=== PATIENT | male | born 1970 | race Caucasian/White ===

== ENCOUNTER 2020-08-31 10:36 | Emergency (ER) | payer OTHER, SELFPAY ==
--- NOTE | ~2020-08-31 | XR_ITS ---
EXAMINATION: XR wrist RT min 3V DATE: 08/31/2020 11:20 INDICATION: Right wrist injury and pain. TECHNIQUE: 4 views of right wrist were obtained. COMPARISON: None. FINDINGS: Bone alignment is normal. No fracture. There is mild osteoarthritis of first carpometacarpa l joint. IMPRESSION: 1. Mild osteoarthritis of first carpometacarpal joint. Reviewed, dictated and finalized at location B.
[2020-08-31 10:49] VITALS: BP 152/102; PULSE 87; RESP 20; TEMP 36.7; O2SAT 97
--- NOTE | 2020-08-31 12:28 | ED.GENADULT ---
HPI - General Adult General Chief complaint: Extremity Injury, Upper Stated complaint: hand injury Time Seen by Provider: 08/31/20 11:13 Source: patient and RN notes reviewed Mode of arrival: ambulatory Limitations: no limitations History of Present Illness HPI narrative: Patient is a 49-year-old male who presents to emergency department for evaluation of right wrist pain that occurred after striking his hand last night while at work after he slipped patient notes aching pain to the right wrist at the snuffbox patient denies other injuries or complaints pain radiates up the arm Related Data Allergies Allergy/AdvReac Type Severity Reaction Status Date / Time No Known Allergies Allergy Verified 08/31/20 11:48 Review of Systems Review of Systems: All systems reviewed & are unremarkable except as noted in HPI and below PMFSH Social History Social History (Updated 08/31/20 @ 12:30 by Gurwinder Zhao PA-C) Smoking status: Never smoker Exam Narrative: Exam Narrative: GENERAL: Well-appearing, well-nourished, and in no acute distress. HEAD: Normocephalic, atraumatic. EYES: PERRLA and EOMI. ENT: Nares clear, no rhinorrhea or epistaxis. Mucous membranes moist. EXTREMITIES: Normal range of motion. No edema. Tenderness of the right wrist at the anatomical snuffbox there are no deformities noted SKIN: Warm, dry, no rash. NEURO: No focal deficits. Alert and oriented x3. Cranial nerves II through XII grossly intact. Neurovascularly intact PSYCH: Normal mood and affect. Course Course Emergency Course: Patient with negative radiographs will be referred to orthopedist and primary care for further evaluation patient is aware of his x-ray findings Vital Signs Vital signs: Vital Signs Temperature 98.0 F 08/31/20 10:49 Pulse Rate 87 08/31/20 10:49 Respiratory Rate 08/31/20 10:49 Blood Pressure 152/102 H 08/31/20 10:49 Pulse Oximetry 97 08/31/20 10:49 Temperature 98.0 F 08/31/20 10:49 Pulse Rate 87 08/31/20 10:49 Respiratory Rate 20 08/31/20 10:49 Blood Pressure 152/102 H 08/31/20 10:49 Pulse Oximetry 97 08/31/20 10:49 Medical Decision Making MDM Narrative Medical decision making narrative: Patients injury or pain is consistent with musculoskeletal etiology. No signs of neurological or vascular compromise on exam. Compartments and tisues are soft without signs of compartment syndrome. Pain is felt appropriate for further evaluation on an outpatient basis. Vital Signs Vital Signs: Vital Signs Temperature 98.0 F 08/31/20 10:49 Pulse Rate 87 08/31/20 10:49 Respiratory Rate 20 08/31/20 10:49 Blood Pressure 152/102 H 08/31/20 10:49 Pulse Oximetry 97 08/31/20 10:49 Temperature 98.0 F 08/31/20 10:49 Pulse Rate 87 08/31/20 10:49 Respiratory Rate 20 08/31/20 10:49 Blood Pressure 152/102 H 08/31/20 10:49 Pulse Oximetry 97 08/31/20 10:49 Imaging Data Radiologist's impression: ITS Impressions Wrist X-Ray 08/31/20 11:21 IMPRESSION: 1. Mild osteoarthritis of first carpometacarpal joint. Discharge Plan Discharge Clinical Impression: Sprain and strain of wrist Patient Disposition: Home, Self-Care Condition: Stable Instructions: Antibiotic Form, Arthralgia (ED) Additional Instructions: Follow-up with orthopedist in the next 10 days Return if symptoms worsen or concerns Wear Jamie wrap with rest ice and elevation Follow-up/Referrals: PHYSICIAN,WAITRESS [Primary Care Provider] - Luis M Smith MD [Physician] - Stand Alone Forms: Work/School Release IP
== END 2020-08-31 12:51 | disposition home or self-care (01) ==
PROVIDERS: Emergency Provider Emergency Medicine
DX: S63.501A Unspecified sprain of right wrist, initial encounter (principal); W01.0XXA Fall on same level from slipping, tripping and stumbling without subsequent striking against object, initial encounter
CPT/HCPCS: 73110; 99283

== ENCOUNTER 2021-06-02 20:24 | Emergency (ER) | payer OTHER, SELFPAY ==
--- NOTE | ~2021-06-02 | XR_ITS ---
EXAMINATION: XR wrist RT min 3V DATE: 06/02/2021 20:58 INDICATION: Right wrist pain and swelling. TECHNIQUE: 4 views of right wrist were obtained. COMPARISON: Right wrist radiographs 08/31/2020 FINDINGS: Bone alignment is normal. No fracture. Joint spaces are well maintained. There is radial si ded soft tissue swelling. IMPRESSION: 1. No fracture. Reviewed, dictated and finalized at location E. TRIMMER UPHOLSTERER IMPRESSION: 1. No fracture.
[2021-06-02 20:30] VITALS: BP 155/73; PULSE 88; RESP 20; TEMP 36.3; O2SAT 100
--- NOTE | 2021-06-02 20:53 | ED_ITS ---
HPI - Extremity Injury (Upper) General Chief Complaint: Extremity Injury, Upper Stated Complaint: right wrist pain Time Seen by Provider: 06/02/21 20:43 Source: patient Mode of arrival: ambulatory Limitations: no limitations History of Present Illness HPI narrative: Patient is a 51-year-old male complaining of right wrist pain, 5 out of 10, dull, worse with movement accompanied by swelling x2 days. Patient denies any recent wrist injury but states that he has occasional pain in that wrist from an old injury at work. Patient denies any fever or chills. Denies any cold extremity. Denies any weakness or numbness. 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 Mild pain on palpation of the right wrist, full range of motion but with pain. Neurovascular is intact. Course Vital Signs Vital signs: Vital Signs Temperature 36.3 C L 06/02/21 20:30 Pulse Rate 88 06/02/21 20:30 Respiratory Rate 20 06/02/21 20:30 Blood Pressure 155/73 H 06/02/21 20:30 Pulse Oximetry 100 06/02/21 20:30 Temperature 36.3 C L 06/02/21 20:30 Pulse Rate 88 06/02/21 20:30 Respiratory Rate 20 06/02/21 20:30 Blood Pressure 155/73 H 06/02/21 20:30 Pulse Oximetry 100 06/02/21 20:30 Discharge Plan Discharge Clinical Impression: Sprain and strain of wrist Patient Disposition: Home, Self-Care Condition: Stable Instructions: Wrist Sprain (ED) Additional Instructions: Follow-up with Workmen's Comp. Prescriptions: No Action naproxen sodium [Aleve] 220 mg tablet 220 mg PO BID PRNRF: 0 Follow-up/Referrals: PHYSICIAN,RECEPTION CLERK [Primary Care Provider] - Time of Disposition: 22:33
[2021-06-02 22:41] VITALS: PULSE 85; RESP 16; TEMP 36.9; O2SAT 98
== END 2021-06-02 22:40 | disposition home or self-care (01) ==
PROVIDERS: Emergency Provider Emergency Medicine
DX: S63.501A Unspecified sprain of right wrist, initial encounter (principal); X58.XXXA Exposure to other specified factors, initial encounter
CPT/HCPCS: 73110; 99283

== ENCOUNTER 2021-11-28 00:12 | Day surgery (SDC) | payer OTHER, SELFPAY ==
--- NOTE | 2021-11-24 17:09 | PC.NURSE ---
Report to the Outpatient Waiting Room, entrance under the green pavilion located off [facility], at time 0830 on date 11/28/21. OR Time: 1030___. - You and your visitor will be asked a series of questions to screen for COVID 19 for your protection. - Only one visitor is allowed at this time. - The patient visitor is requested to leave or wait in car when not with patient. - A mask is required within the hospital. Patients may have clear liquids (water, carbonated beverages, clear teas, apple juice) until 3 hours prior to surgery with a maximum of 20 ounces. - No food from midnight until time of surgery - Infants may have breast milk until 4 hours before surgery, infant formula 6 hours prior to surgery. - Children will be allowed to drink immediately following surgery. If applicable, please bring a bottle or sippy cup to assist with drinking. Juice, water, soda, and popsicles are readily available. For infants on formula, please bring formula the day of surgery. Pacifiers are allowed. Take the following medications with a SIP of water the morning of surgery: NONE Medications to discontinue per physician NAPROXEN Date to take last dose____11/25/21 Please no make-up, nail ecuadorean, hairspray, perfume, deodorant, or body powder the day of surgery. No jewelry (including any body piercings) or valuables the day of surgery, leave them at home. Please take a shower or bath the night before, or the morning of, surgery with an antibacterial soap. Wear comfortable, loose fitting clothing. Children are encouraged to wear pajamas. - Jewelry must be removed prior to entering the operating room. Rings and piercings that are not removed may be cut off. - The hospital will not accept responsibility for valuables. - Please leave all valuables, including medications, at home the day of surgery. If you are going home after surgery, a licensed dedicated driver must drive you home. - NO public transportation without another adult. - We recommend that an adult stay with you for 24 hours following discharge. - We also recommend that you do not drive, make important decision, drink alcoholic beverages, or take any drugs that were not prescribed by your health care provider for at least 24 hours after your discharge time. For Pediatric surgeries, we recommend two adults accompany the child home (only one inside the building at this time). Follow any additional instructions given to you from your surgeon. If you or anyone in your household have experienced Covid symptoms in the past week, please notify your surgeon or the nurse liaison at the phone number below for possible testing. Telephone instructions given to _PATIENT_and asked if any additional questions and then verbalized understanding. Patient advised to call surgeon office or pre surgery nurse liaison [phone] if any additional questions.
[2021-11-28] VITALS (7 sets, daily range): BP systolic 96–162; BP diastolic 63–98; PULSE 56–66; RESP 12–18; TEMP 36.2–36.8; O2SAT 99–100
--- NOTE | 2021-11-28 06:54 | SUR.PREOP ---
0619 SPOKE WITH PT, INFORMED OF MESAGE LEFT ON SUNDAY AND TIME CHANGE. PT STATES HE WILL GET READY AND COME IN.
[2021-11-28] MEDS: LACTATED RINGERS 1,000 ML 30 ML IV CONT (08:00)
[2021-11-28] MEDS: ACETAMINOPHEN 500 MG TABLET 1000 MG PO (08:01)
[2021-11-28] MEDS: KETOROLAC 15 MG/ML VIAL (*BKC) IV PUSH (08:01)
--- NOTE | 2021-11-28 08:16 | P.PNAN_ITS ---
Anes - Initial Pre Proc Eval Procedure: Operation Date: 11/28/21 07:30 Proposed Procedures p Right First Dorsal Compartment Release - Luis M Smith MD Date/Time: 11/28/21 08:16 Surgeon: Luis M Smith MD Pre Op Diagnosis: right dequervain's first dorsal compartment Patient Data Age: 50 Gender: M Height: Weight: 81.3 kg Last Vital Signs Temp 36.8 C 11/28/21 07:40 Pulse 66 11/28/21 07:40 Resp 18 11/28/21 07:40 BP 147/88 H 11/28/21 07:40 Pulse Ox 99 11/28/21 07:40 O2 Del Method Room Air 11/28/21 07:40 Allergies Allergy/AdvReac Type Severity Reaction Status Date / Time No Known Allergies Allergy Verified 11/28/21 07:46 Home Medications Medication Instructions Recorded Confirmed Type naproxen sodium 220 mg tablet 220 mg PO BID PRN Pain 09/07/20 11/28/21 History (Aleve) Patient hx anesthesia problems: none Family hx anesthesia problems: none Results Review: All pre-operative results and documents have been reviewed as part of the pre- operative evaluation. 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 Informed Consent: The patient's anesthetic plan and its attendant risks and benefits were discussed with the patient/family/POA. Questions were solicited and answers provided to the satisfaction of the patient/family/POA.
--- NOTE | 2021-11-28 08:31 | WPDHPUPDATE1 ---
History and Physical Update Update Date/Time: 11/28/21 08:31 History and Physical has been reviewed, including an updated exam of the patient. There are NO changes in the patient's condition. Risks, benefits, and alternatives have been discussed and questions answered. Patient agrees to proceed with procedure.
[2021-11-28] MEDS: ceFAZolin 2 GM/D5W 50 ML 2 GM/50 ML BAG IVPB (08:43)
[2021-11-28] MEDS: BUPIVACAINE/EPINEPHRINE 0.25% 50 ML VIAL INFILTRATE (09:10)
--- NOTE | 2021-11-28 09:29 | P.OP_ITS ---
Procedure Note - Detailed Date of Procedure 11/28/21 Pre-op Diagnosis right dequervain's first dorsal compartment Post-op Diagnosis Same Procedure Performed Right first dorsal compartment release Surgeon Luis M Smith MD Application Developer Manager Verito Scott Anesthesia General Description of Procedure The patient was identified and proper site identified. He was taken to the operating room and transferred to the OR table placing him supine taking care to pad the torso and extremities. A nonsterile tourniquet was placed high on the right arm which was prepped and draped in usual sterile fashion. After general anesthetic induction and intubation several cc of 0.25% Marcaine and epineph rine solution was infiltrated into the subcutaneous tissue over the right radial styloid. The extremity was exsanguinated and the tourniquet was inflated to 250 mmHg remaining up for approximately 10 minutes. A longitudinal incision was made over the radial styloid and the subcutaneous tissue was bluntly dissected protecting neurovascular structures. The first dorsal compartment was identified and then transected in line with the tendons releasing the contents. The tendons were delivered into the wound to verify the adequacy of the release. The wound was irrigated with sterile saline. Hemostasis was carried out. Skin edges were reapproximated with 4-0 Prolene suture and Steri-Strips. Sterile dressing was applied. Tourniquet was released. He tolerated procedure well and was transferred back to the cart and taken to the recovery area in stable condition. There were no known intraoperative complications. Estimated blood loss was negligible. Perioperative antibiotics were administered. Estimated Blood Loss 0 Tourniquet Time 10 Drains No Packing No Pathology None sent Complications No immediate complications Condition Stable Disposition PACU
--- NOTE | 2021-11-28 09:31 | SUR.PHASEI ---
0930- oral airway removed
== END 2021-11-28 10:51 | disposition home or self-care (01) ==
PROVIDERS: Visit Provider Orthopaedic Surgery
PROC: (CPT 25000; principal; 2021-11-28 07:30)
DX: M65.4 Radial styloid tenosynovitis [de Quervain] (principal); F17.210 Nicotine dependence, cigarettes, uncomplicated
CPT/HCPCS: 25000; A9270; J0690; J1100; J1885; J2250; J2405; J2704; J3010; J7120